=== PATIENT | female | born 1960 | race Hispanic/Latino ===

== ENCOUNTER 2025-03-31 21:19 | Observation (INO) | payer OTHER ==
[~2025-03-31] VITALS: Ht 162.6 cm; Wt 81.6 kg
[2025-03-31 21:20] VITALS: TEMP 98.1
[2025-03-31 21:42] LABS: BASOPHILS % 0.2 % (0.0-1.0); EOSINOPHILS % 1.9 % (0.0-6.0); LYMPHOCYTES % 26.9 % (18.0-39.1); MONOCYTES % 7.5 % (4.4-11.3); NEUTROPHILS % 63.2 % (38.7-80.0); RED CELL DISTRIBUTION WIDTH 12.9 % (11.7-14.4)
[2025-03-31 22:03] LABS: EST GLOMERULAR FILTRATION RATE 99.0 ML/MIN (>=60)
[2025-03-31] MEDS: ONDANSETRON HCL INJ 2MG/ML 2ML 2 MG/ML VIAL IV STA (22:22)
[2025-03-31] MEDS: HYDRALAZINE HCL 20 MG/ML VIAL IV STA (22:23)
[2025-03-31] MEDS: Morphine 4mg INJECTION 4 MG/ML INJ IV ONE (22:23)
[2025-03-31 22:53] LABS: INR 0.87
[2025-04-01] VITALS (11 sets, daily range): BP systolic 124–182; BP diastolic 77–106; PULSE 71–88; RESP 17–22; TEMP 97.6–98.6; O2SAT 98–100
[2025-04-01] MEDS: ONDANSETRON HCL INJ 2MG/ML 2ML 2 MG/ML VIAL IV PRN (02:21)
[2025-04-01] MEDS: Morphine 4mg INJECTION 4 MG/ML INJ IV PRN (02:22)
[2025-04-01] MEDS ORDERED: NEURONTIN100 MG PO (07:41)
[2025-04-01] MEDS ORDERED: LOSARTAN POTASS25 MG PO (07:41)
[2025-04-01] MEDS ORDERED: CELEBREX200 MG PO (07:41)
[2025-04-01] MEDS ORDERED: PREDNISONE5 MG PO (07:41)
[2025-04-01] MEDS ORDERED: PREDNISONE20 MG PO (07:41)
[2025-04-01] MEDS ORDERED: PREDNISONE10 MG PO (07:41)
[2025-04-01] MEDS: HYDRALAZINE HCL 20 MG/ML VIAL IV PRN (15:42)
[2025-04-01] MEDS: LOSARTAN POTASSIUM 25 MG TAB PO SCH (16:23)
[2025-04-01] MEDS: ACETAMINOPHEN 325 MG TAB PO PRN (18:23)
[2025-04-01] MEDS: GABAPENTIN 100 MG CAP PO SCH (21:05)
[2025-04-02] VITALS: BP 142/77; PULSE 88; RESP 17; TEMP 98.5; O2SAT 100
[2025-04-02 04:00] VITALS: BP 170/93; PULSE 81; RESP 17; TEMP 98.2; O2SAT 97
[2025-04-02 05:18] LABS: BASOPHILS % 0.5 % (0.0-1.0); EOSINOPHILS % 5.0 % (0.0-6.0); LYMPHOCYTES % 21.3 % (18.0-39.1); MONOCYTES % 8.0 % (4.4-11.3); NEUTROPHILS % 64.9 % (38.7-80.0); RED CELL DISTRIBUTION WIDTH 13.2 % (11.7-14.4)
[2025-04-02 05:46] LABS: CHOL/HDL RATIO 6.7 (3.0-3.6); EST GLOMERULAR FILTRATION RATE 100.0 ML/MIN (>=60); LDL CHOLESTEROL 163.0 MG/DL (60-130)
[2025-04-02 08:20] VITALS: BP 147/84; PULSE 86; RESP 18; TEMP 98.1; O2SAT 100
[2025-04-02] MEDS ORDERED: LOSARTAN POTASSIUM 25 MG TAB PO SCH (09:00)
[2025-04-02] MEDS: CELECOXIB 100 MG CAP PO SCH (09:01)
[2025-04-02 11:23] VITALS: BP 163/89; PULSE 88; RESP 16; TEMP 98; O2SAT 99
== END 2025-04-02 15:05 | disposition home or self-care (01) ==
LOC: ER 21:36 → ERHOLD 04-01 01:27 → MED/SURG 04-01 02:17
PROVIDERS: ADMIT Internal Medicine; ATTEND Internal Medicine
DX: R07.89 Other chest pain (principal); I10 Essential (primary) hypertension; M06.9 Rheumatoid arthritis, unspecified; F41.9 Anxiety disorder, unspecified
CPT/HCPCS: 36415 ×3; 71045; 80053 ×2; 80061; 82550; 83880; 84484 ×2; 85025 ×2; 85379; 85610; 85730; 93005; 93306; 99284; G0378 ×2; J0360 ×3; J2270 ×2; J2405 ×2; J2470 ×2